=== PATIENT | male | born 1950 | race Caucasian/White ===

== ENCOUNTER → 2016-05-14 | Outpatient (CLI) | payer MEDICARE, OTHER ==
--- NOTE | 2016-05-15 09:33 | XR ---
EXAMINATION TYPE: XR chest 2V DATE OF EXAM: 05/14/2016 1:55 PM COMPARISON: NONE, 2 views of the chest HISTORY: Cough TECHNIQUE: Frontal and lateral views of the chest are obtained. FINDINGS: Patient is rotated. Cardiac mediastinal silhouette, pulmonary vascularity and maria elena within normal limits. Prominent lung volume may be indicative of underlying COPD. No pneumonia, pneumothorax , or pleural effusion. IMPRESSION: No acute cardiopulmonary process.
== END | disposition home or self-care (01) ==
LOC: RADXRYALE 13:45
PROVIDERS: ATTEND Internal Medicine
DX: R05 Cough (principal)
CPT/HCPCS: 71020

== ENCOUNTER → 2017-06-28 | Outpatient (CLI) | payer MEDICARE, OTHER ==
[2017-06-28 14:47] LABS: Blood Urea Nitrogen 13 mg/dL (9-20)
--- NOTE | 2017-06-28 16:02 | CT ---
EXAMINATION TYPE: CT chest w con DATE OF EXAM: 06/28/2017 COMPARISON: NONE HISTORY: Short of breath for [address] DLP: 367.6 mGycm. Automated Exposure Control for Dose Reduction was Utilized. TECHNIQUE: CT scan of the thorax is performed following with IV Contrast, patient injected with 100 mL of Isovue 300. FINDINGS: LUNGS: The lungs are grossly clear without focal consolidation. There is a 3 mm solid pulmonary nodul e on series 4 image 26 within the left upper lobe. There is no pleural effusion or pneumothorax seen. The tracheobronchial tree is patent. There is mild to moderate centrilobular emphysema most pronoun ana rosa within the lung apices. MEDIASTINUM: There are no greater than 1 cm hilar or mediastinal lymph nodes. No pericardial effusi on is seen. The heart is upper limits of normal in size. Moderate three-vessel coronary calcificatio ns are incidentally noted. OTHER: Incidental note is made of bilateral mild retroareolar symmetric gynecomastia. A 1 cm left hep atic cyst is present. IMPRESSION: 1. Mild to moderate centrilobular emphysema. 2. 3 mm left upper lobe solitary solid pulmonary nodule. Per consensus criteria CT is recommended in 12 months for reevaluation of interval growth. 3. Moderate three-vessel coronary artery calcifications, marker for coronary artery disease.
== END | disposition home or self-care (01) ==
LOC: RADCTMAIN 13:51
PROVIDERS: ATTEND Internal Medicine
DX: J43.2 Centrilobular emphysema (principal); R91.1 Solitary pulmonary nodule; I25.10 Atherosclerotic heart disease of native coronary artery without angina pectoris
CPT/HCPCS: 82565; 84520; 71260; 36415; Q9967